=== PATIENT | female | born 1940 | race Caucasian/White ===

== ENCOUNTER 2018-09-22 11:07 | Inpatient (IN) | payer MEDICARE ==
[~2018-09-22] VITALS: Ht 160 cm; Wt 71.6 kg
[2018-09-22 11:16] VITALS: BP 87/63
[2018-09-22 11:47] LABS: HEMATOCRIT 42.2 % (37.0-47.0); HEMOGLOBIN 13.7 gm/dL (12.0-15.0); MCH 32.7 pg (26.0-34.0); MCHC 32.5 g/dL (28.0-37.0); MCV 100.7 fL (80.0-100.0); MPV 8.5 fl. (7.2-11.1); NUCLEATED RBCS 0 /100WBC; PLATELET COUNT* 306 thou/uL (150-400); RBC 4.19 mil/uL (4.20-5.00); RDW-CV 16.2 % (10.5-14.5); WBC 7.5 thou/uL (4.0-11.0)
[2018-09-22 11:53] LABS: APTT 26.8 Seconds (25.0-31.3)
[2018-09-22 11:54] LABS: ANION GAP 6 mmol/L (7-16); BUN 17 mg/dL (7-18); CALCIUM 8.8 mg/dL (8.5-10.1); CHLORIDE 102 mmol/L (98-107); CO2 28 mmol/L (21-32); CREATININE 0.9 mg/dL (0.6-1.3); GLUCOSE 110 mg/dL (70-99); POTASSIUM 3.8 mmol/L (3.5-5.1); SODIUM 136 mmol/L (136-145)
[2018-09-22 12:05] LABS: ALBUMIN 3.1 g/dL (3.4-5.0); ALKALINE PHOSPHATASE 90 U/L (46-116); NT-PRO BRAIN NAT PEPTIDE 2321 pg/mL (<300); SGOT 14 U/L (15-37); SGPT 16 U/L (30-65); TOTAL BILIRUBIN 0.4 mg/dL (<0.1-1.0); TOTAL PROTEIN 6.9 g/dL (6.4-8.2); TROPONIN-I LEVEL <0.06 ng/mL (<0.06)
[2018-09-22 12:50] LABS: ABSOLUTE EOSINOPHILS 0.1 thou/uL (0.0-0.7); ABSOLUTE LYMPHOCYTES 0.4 thou/uL (0.8-5.3); ABSOLUTE MONOCYTES 0.8 thou/uL (0.0-1.2); ABSOLUTE NEUTROPHILS 6.3 thou/uL (1.6-8.1); ANISOCYTOSIS 1+; PLATELET ESTIMATE ADEQUATE; POIKILOCYTOSIS 1+
[2018-09-22 13:12] LABS: URINE BILIRUBIN NEGATIVE (Negative); URINE BLOOD TRACE (Negative); URINE CLARITY CLEAR; URINE COLOR YELLOW; URINE GLUCOSE-RANDOM NEGATIVE (Negative); URINE KETONES NEGATIVE (Negative); URINE LEUKOCYTES-REFLEX NEGATIVE (Negative); URINE NITRITE-REFLEX NEGATIVE (Negative); URINE PROTEIN NEGATIVE (Negative); URINE SPECIFIC GRAVITY <= 1.005 (1.005-1.030); URINE UROBILINOGEN 0.2 E.U./dl (0.2-1.0)
[2018-09-22 14:29] VITALS: BP 104/58
[2018-09-22 15:00] VITALS: BP 95/68
[2018-09-22] MEDS ORDERED: TRAMADOL 50 MG50 MG PO (15:19)
[2018-09-22] MEDS ORDERED: LIPITOR10 MG PO (15:20)
[2018-09-22] MEDS ORDERED: XANAX 0.5 MG0.5 MG PO (15:20)
[2018-09-22] MEDS ORDERED: CARVEDILOL3.125 MG PO (15:22)
[2018-09-22] MEDS ORDERED: NORCO 5-325 TA1 EACH PO (15:23)
[2018-09-22] MEDS ORDERED: PREDNISONE 5 MG5 M1 PO (15:24)
[2018-09-22] MEDS ORDERED: ASPIRIN325 PO (15:24)
[2018-09-22] MEDS ORDERED: LISINOPRIL2.5 MG PO (15:25)
[2018-09-22] MEDS ORDERED: FOLIC ACID1 MG PO (15:25)
[2018-09-22] MEDS ORDERED: RESTORIL30 MG PO (15:26)
[2018-09-22] MEDS ORDERED: METHOTREXATE 22.5 MG PO (15:27)
[2018-09-22] MEDS ORDERED: FUROSEMIDE 20 M20 M1 PO (15:28)
[2018-09-22] MEDS ORDERED: SPIRONOLACTONE25 M1 PO (15:29)
--- NOTE | 2018-09-22 15:50 | NUR ---
PT TO UNIT AT APPROX 1500. PT IS ALERT AND ORIENTED, BUT POOR HISTORIAN-DENIES ANY PAST MEDICAL HISTORY. TELE TRACKING NSR AND ALL VSS ON 2L. DENIES CP, SOA. FLUIDS INFUSING PER ORDERS. EDUCATED ON SAFETY AND PLAN OF CARE. INSTRUCTED ON USE OF CALL LIGHT FOR ASSIST. PLEASE SEE ASSESSMENT FOR ADDITIONAL INFORMATION. WILL CONTINUE TO MONITOR.
[2018-09-22 19:25] VITALS: BP 106/63
--- NOTE | 2018-09-22 23:26 | NUR ---
ASSUMED CARE OF PT AT 1900. PT IS ALERT AND ORIENTED. VSS. PERRLA. NO COMPLAINTS OF PAIN. PT IS IN SINUS RYTHM ON THE TELEMETRY. PT IS RESTING COMFORTABLY IN BED. RESPIRATIONS ARE EVEN AND NONLABORED. WILL CONTINUE TO MONITOR PT.
[2018-09-23] VITALS: BP 90/50
[2018-09-23 04:00] VITALS: BP 117/54
[2018-09-23 05:25] LABS: HEMATOCRIT 38.7 % (37.0-47.0); HEMOGLOBIN 12.8 gm/dL (12.0-15.0); MCH 33.3 pg (26.0-34.0); MCV 100.7 fL (80.0-100.0); MPV 8.8 fl. (7.2-11.1); RBC 3.84 mil/uL (4.20-5.00); RDW-CV 16.4 % (10.5-14.5)
[2018-09-23 05:52] LABS: CALCIUM 8.5 mg/dL (8.5-10.1); CREATININE 0.8 mg/dL (0.6-1.3); POTASSIUM 3.6 mmol/L (3.5-5.1)
[2018-09-23 08:00] VITALS: BP 101/60
--- NOTE | 2018-09-23 11:46 | NUR ---
PT ALERT AND ORIENTED. TELE TRACKING NSR AND ALL VSS ON 1L. PT APPEARED TO BE UPSET THIS AM AFTER SPEAKING WITH INVESTMENT ASSOCIATE. PT VOICING CONCERN ABOUT RETURNING TO ASSISTED LIVING VS "CORRECTION" THERAPUTIC COMMINICATION AND ENCOURAGMENT TO WORK WITH THERAPY PROVIDED. PT AND SON EDUCATED ON SAFETY AND PLAN OF CARE. PLEASE SEE ASSESSMENT FOR ADDITIONAL INFORMATION. WILL CONTINUE TO MONITOR
--- NOTE | 2018-09-23 12:11 | EKG ---
[place] [address] ELECTROCARDIOGRAM REPORT Name: CARY CHANCE Room: [address] ADM IN [facility]#: [id number] Admission: 09/22/18 Attend Phys: Brian Keene MD Discharge: Date of : 36 Report #: [id number] THIS REPORT FOR: //name// [facility] ED Test Date: 2018-09-22 Test Time: 11:23:00 Pat Name: CARY CHANCE Department: Room: [facility] Gender: F Customer Advocacy Manager: HUMERA : 1940 Requested By: Andrea Nelson Order Number: [id number] MD: Dennis Morales Measurements Intervals [place] Rate: 90 P: 20 VA: 150 QRS: -17 QRSD: 75 T: 59 QT: 336 QTc: 411 Interpretive Statements Sinus rhythm Probable left atrial enlargement Left ventricular hypertrophy No previous ECG available for comparison Electronically Signed On 09-23-2018 12:11:25 CLINICAL PHARMACY COORDINATOR by Dennis Morales [email or web address] <ELECTRONICALLY SIGNED> By: Dennis Morales MD, [facility] 09/23/18 1211 1123 22 Dennis Morales MD, FACC /EPI
[2018-09-23 12:29] VITALS: BP 112/72
[2018-09-23 16:00] VITALS: BP 114/70
[2018-09-23 20:00] VITALS: BP 122/72
[2018-09-24] VITALS: BP 125/77
--- NOTE | 2018-09-24 03:23 | NUR ---
PATIENT RESTED IN BED, NO ACUTE CHANGES. PATIENT DOES NOT APPEAR TO BE IN DISTRESS. FALL PRECAUTIONS IN PLACE, CALL LIGHT WITHIN REACH, HOURLY ROUNDING OBSERVED, BED ALARM ON.
[2018-09-24 04:00] VITALS: BP 105/61
[2018-09-24 06:06] LABS: CALCIUM 8.6 mg/dL (8.5-10.1); CREATININE 0.8 mg/dL (0.6-1.3); POTASSIUM 3.7 mmol/L (3.5-5.1)
[2018-09-24 07:55] VITALS: BP 103/40
--- NOTE | 2018-09-24 10:18 | NUR ---
PT ALERT AND ORIENTED. TELE TRACKING NSR AND ALL VSS ON 1L. PT CONTINUES TO VOICE CONCERN ABOUT RETURNING TO ASSISTED LIVING VS. LTC. PT STATES SHE DOES NOT FEEL LIKE GETTING UP. THERAPUTIC COMMUNICATION AND ENCOURAGEMENT TO PARTICIPATE WITH THERAPIES PROVIDED. PT EDUCATED ON SAFETY AND PLAN OF CARE. PLEASE SEE ASSESSMENT FOR ADDITIONAL INFORMATION. WILL CONTINUE TO MONITOR
--- NOTE | 2018-09-24 10:35 | NUR ---
CARBON ACCOUNTANT SPOKE TO BENNIE SHOALS HOSPITAL DIRECTOR AT [facility] TO INFORM THAT THE PATIENT STATES THAT SHE FEELS LIKE SHE IS BEING 'THREATENED' AT THAT FACILITY, AND THAT THEY ARE TRY TO MAKE HER 'MOVE INTO LONG-TERM CARE'. DULCE INFORMS THAT HE DOES NOT KNOWN ANYONE THAT WOMALL HAVE SAID THAT TO THE PATIENT. BENNIE ALSO INFORMS THAT HIS ONLY CONCERN IS THAT WHEN THE PATIENT LEF THE FACILITY TO COME TO THE HOSPITAL THAT THEY WERE CONCERNED THAT SHE MAY HAVE HAD A STROKE, AND THAT SHE WAS A MAX ASSIST X2 FOR TRANSFERS. THE PATIENT MAY NEED TO TRANSFER TO THE SKILLED UNIT TO RECIEVE THERAPY PRIOR TO HER RETURN TO [facility]. CM WILL REMAIN AVAILABLE TO ASSIST AND FOLLOW NEEDED.
[2018-09-24 11:30] VITALS: BP 101/53
--- NOTE | 2018-09-24 13:30 | NUR ---
Pt resides at [facility]. Pt is normally wc bound but able to complete her own transfers. CM spoke with , Pt will need skilled at dc. Cm updated Pt's son, he is in agreement with POC. Pt should be ready to dc tomorrow. Faxed initial referral to [facility]. Following.
--- NOTE | 2018-09-24 14:43 | 2DMMODE ---
[place] [address] 2 D/M-MODE ECHOCARDIOGRAM Name: CARY CHANCE Room: [address] IN [facility]#: [id number] Admission: 09/22/18 Attend Phys: Brian Keene MD Discharge: Date of : 36 Date of Service: 09/24/18 1443 Report #: [id number] THIS REPORT FOR: //name// APPROVED REPORT Study performed: 09/24/2018 11:06:21 EXAM: Comprehensive 2D, Doppler, and color-flow Echocardiogram Patient Location: In-Patient Room #: [facility] Status: routine BSA: 1.74 HR: 61 bpm BP: 103/40 mmHg Rhythm: NSR Other Information Study Quality: Good Indications Hypotension Congestive Heart Failure 2D Dimensions IVSd: 14.15 (7-11mm) LVOT Diam: 19.60 (18-24mm) LVDd: 40.81 mm PWd: 9.87 (7-11mm) Ascending Ao: 35.54 (22-36mm) LVDs: 30.73 (25-40mm) Aortic Root: 28.65 mm Volumes Left Atrial Volume (Systole) LA ESV Index: 24.10 mL/m2 Aortic Valve AoV Peak Abdulkadir.: 1.39 m/s AO Peak Gr.: 7.77 mmHg LVOT Max P.56 mmHg AO Mean Gr.: 4.20 mmHg LVOT Mean P.69 mmHg LVOT Max V: 0.94 m/s AO V2 VTI: 25.70 cm LVOT Mean V: 0.59 m/s FRANCINE (VTI): 2.31 cm2 LVOT V1 VTI: 19.64 cm Mitral Valve E/A Ratio: 0.65 MV Decel. Time: 256.92 ms MV E Max Abdulkadir.: 0.66 m/[place] [address] 2 D/M-MODE ECHOCARDIOGRAM Name: CARY CHANCE Room: [address] [facility]#: [id number] Admission: 09/22/18 Attend Phys: Brian Keene MD Discharge: Date of : 36 Date of Service: 09/24/18 1443 Report #: [id number] MV PHT: 74.51 ms MVA (PHT): 2.95 cm2 TDI E/Lateral E': 13.20 E/Medial E': 9.43 Medial E' Abdulkadir.: 0.07 m/s Lateral E' Abdulkadir.: 0.05 m/s Pulmonary Valve PV Peak Abdulkadir.: 0.63 m/s PV Peak Gr.: 1.58 mmHg Left Ventricle The left ventricle is normal size. Regional wall motion abnormalities are noted. distal anteroseptal and apical akinesis Moderate basal septal hypertrophy is present. Left ventricular systolic function is moderately decreased. LVEF is 30-35%. Grade I - abnormal relaxation pattern. Right Ventricle The right ventricle is normal size. The right ventricular systolic function is normal. Atria The left atrium size is normal. The right atrium size is normal. Aortic Valve Mild aortic valve sclerosis. No aortic regurgitation is present. There is no aortic valvular stenosis. Mitral Valve The mitral valve is normal in structure. There is no mitral valve regurgitation noted. No evidence of mitral valve stenosis. Tricuspid Valve The tricuspid valve is normal in structure. Unable to assess PA pressure. Trace tricuspid regurgitation. Pulmonic Valve Pulmonic valve is not well visualized. There is no pulmonic [place] [address] 2 D/M-MODE ECHOCARDIOGRAM Name: CARY CHANCE Room: [address] [facility]#: [id number] Admission: 09/22/18 Attend Phys: Brian Keene MD Discharge: Date of : 36 Date of Service: 09/24/18 1443 Report #: [id number] Great Vessels The aortic root is normal in size. IVC is normal in size and collapses >50% with inspiration. Pericardium There is no pericardial effusion. <Conclusion> LVEF is 30-35%. Regional wall motion abnormalities are noted. distal anteroseptal and apical akinesis Mild aortic valve sclerosis. <ELECTRONICALLY SIGNED> By: Dennis Morales MD, FACC 09/24/18 1443 1443 1443 Dennis Morales MD, FACC /INF
[2018-09-24 16:00] VITALS: BP 119/81
[2018-09-24 20:00] VITALS: BP 134/79
[2018-09-25] VITALS: BP 100/58
[2018-09-25 04:15] VITALS: BP 97/45
--- NOTE | 2018-09-25 04:51 | NUR ---
PATIENT RESTED IN BED, NO ACUTE CHANGES. PATIENT DID NOT SHOW SIGNS OF DISTRESS. FALL PRECAUTIONS IN PLACE, CALL LIGHT WITHIN REACH, HOURLY ROUNDING OBSERVED, BED ALARM ON.
[2018-09-25 09:00] VITALS: BP 108/66
[2018-09-25 12:01] VITALS: BP 114/74
[2018-09-25] MEDS ORDERED: VITAMIN D1000 UNI1 PO (13:08)
[2018-09-25] MEDS ORDERED: FUROSEMIDE 20 M20 M1 PO (13:08)
[2018-09-25] MEDS ORDERED: THERA M PLUS T1 EAC2 PO (13:08)
[2018-09-25] MEDS ORDERED: ASPIRIN325 PO (13:08)
[2018-09-25] MEDS ORDERED: ESCITALOPRAM OX10 MG PO (13:14)
--- NOTE | 2018-09-25 13:53 | NUR ---
Pt discharging to [facility] skilled today, facility to pharmacy picking technician at 3pm. Faxed dc orders. Chart copied. Nurse report number provided, [phone]. Updated Pt's son, Magdi.
--- NOTE | 2018-09-25 13:53 | NUR ---
PATIENT REFUSED TO WALK FOR SATURATION REST & EXECISE. TWO RN'S AT BEDSIDE ATTEMPTED TO GAMBLING MONITOR PATIENT INTO WALKING. ROOM AIR POX 92%-93% WHILE PATIENT STOOD UP, BUT SHE SAT BACK DOWN REFUSING.
[2018-09-25] MEDS ORDERED: TRAMADOL 50 MG50 MG PO (14:34)
[2018-09-25] MEDS ORDERED: NORCO 5-325 TA1 EACH PO (14:34)
[2018-09-25 14:43] VITALS: BP 114/74
--- NOTE | 2018-09-25 15:50 | NUR ---
IV AND TELE DISCONTINUED. PT DISCHARGED TO SNF VIA WHEELCHAIR VAN.
--- NOTE | 2018-09-26 13:54 | NUR ---
PT FREQUENTLY SHORT WITH STAFF AND REFUSING TO COOPERATE WITH PT/OT. PT FREQUENTLY TELLING ME SHE WANTS TO [facility]GE [facility] AND TO GET DRESSED. INFORM PT AND PT'S SON VIA TELEPHONE THAT I AM AWAITING DR. CAI TO WRITE DISCHARGE ORDERS SO CASE MANAGEMENT CAN SET UP TRANSPORT TO [facility]. AFTER DR. CAI WROTE DISCHARGE ORDERS PT INFORMED MYSELF AND STAFF THAT SHE DID NOT WANT TO DISCHARGE TO [facility] BUT STAY IN [facility] AND GO HOME WITH HER GRANDSON IN THE AM. I INFORMED DR. CAI THAT PT DID NOT WANT TO BE DISCHARGED AND I WAS TOLD BY DR. CAI THAT PT HAD NO CHOICE AND SHE WAS TO BE DISCHARGED. INFORM PT'S SON VIA TELEPHONE THAT SHE HAD TOLD ME THAT SHE DID NOT WANT TO BE DISCHARGED AND WANTED TO STAY AND GO HOME IN AM WITH GRANDSON. PT'S SON INFORMED ME THAT THIS WAS NEWS TO HIM THIS WAS THE FIRST TIME HE WAS HEARING THIS. THE SON THEN CALLED THE PT AND SPOKE WITH HER ON THE PHONE SOON AFTER WHICH SHE AGREED TO DISCHARGE TO SKILLED FACILITY. IT WAS REPORTED THAT THROUGH OUT THE PT'S STAY SHE REFUSED ALL PT/OT HOWEVER I WAS ABLE TO ENCOURAGE PT TO PERFORM OXYGEN WALK WITH RT. PT SIGNED DISCHARGE AND WAS TRANSFERRED TO SKILLED FACILTY VIA WHEELCHAIR VAN.
== END 2018-09-25 15:45 | DRG 315 ==
LOC: M.ERS 11:07 → M.TBA-ER 13:45 → M.2W 13:45
PROVIDERS: Family Medicine; ADMIT Family Medicine
DX: I95.9 Hypotension, unspecified (principal); E44.1 Mild protein-calorie malnutrition; I50.22 Chronic systolic (congestive) heart failure; E86.0 Dehydration; F32.9 Major depressive disorder, single episode, unspecified; I25.10 Atherosclerotic heart disease of native coronary artery without angina pectoris; K21.9 Gastro-esophageal reflux disease without esophagitis; I11.0 Hypertensive heart disease with heart failure; M06.9 Rheumatoid arthritis, unspecified; F03.90 Unspecified dementia, unspecified severity, without behavioral disturbance, psychotic disturbance, mood disturbance, and anxiety; I48.0 Paroxysmal atrial fibrillation; Z88.2 Allergy status to sulfonamides; Z88.8 Allergy status to other drugs, medicaments and biological substances; Z79.82 Long term (current) use of aspirin; Z79.899 Other long term (current) drug therapy; Z68.28 Body mass index [BMI] 28.0-28.9, adult